=== PATIENT | female | born 2000 | race Caucasian/White ===

== ENCOUNTER 2021-02-28 17:06 | Emergency (ER) | payer OTHER ==
[~2021-02-28] VITALS: Ht 142.2 cm; Wt 56.2 kg
[2021-02-28] MEDS ORDERED: CIPRO500 MG PO (21:06)
[2021-02-28] MEDS ORDERED: TAMS0.4C PO (21:06)
== END 2021-02-28 22:35 | disposition home or self-care (01) ==
LOC: ER 17:06
DX: N20.0 Calculus of kidney (principal); R10.11 Right upper quadrant pain; N39.0 Urinary tract infection, site not specified; K59.09 Other constipation; Z03.818 Encounter for observation for suspected exposure to other biological agents ruled out

== ENCOUNTER 2021-08-12 08:16 | Emergency (ER) | payer OTHER ==
[~2021-08-12] VITALS: Ht 142.2 cm; Wt 55.8 kg
[~2021-08-12 08:16] MED LIST: CIPRO500 MG PO; TAMS0.4C PO
== END 2021-08-12 12:43 | disposition home or self-care (01) ==
LOC: ER 08:16
DX: N23 Unspecified renal colic (principal)

== ENCOUNTER 2021-08-15 05:10 | Emergency (ER) | payer OTHER ==
[~2021-08-15] VITALS: Ht 142.2 cm; Wt 55.3 kg
[2021-08-15] MEDS ORDERED: KETO10TA2 PO (07:22)
[2021-08-15] MEDS ORDERED: TAMS0.4C PO (07:22)
[2021-08-15] MEDS ORDERED: CIPRO500 MG PO (07:22)
[2021-08-15] MEDS ORDERED: ZOFRAN8 MG PO (07:22)
== END 2021-08-15 07:35 | disposition home or self-care (01) ==
LOC: ER 05:10
DX: N20.9 Urinary calculus, unspecified (principal); R10.9 Unspecified abdominal pain

== ENCOUNTER 2024-05-31 03:37 | Emergency (ER) | payer OTHER ==
[~2024-05-31] VITALS: Ht 144.8 cm; Wt 52.2 kg
[~2024-05-31 03:37] MED LIST changes: +KETO10TA2 PO; +ZOFRAN8 MG PO
[2024-05-31] MEDS ORDERED: PROMETHAZINE HCL 50 MG/ML AMPUL IM STA (04:58)
[2024-05-31] MEDS ORDERED: MEPERIDINE HCL/PF 50 MG/ML VIAL IM STA (04:58)
[2024-05-31] MEDS ORDERED: HYOSCYAMINE SULFATE 0.125 MG TAB.SUBL SL ONE (05:00)
[2024-05-31 06:30] LABS: HEMATOCRIT 37.6 % (36.0-45.00); HEMOGLOBIN 13.2 g/dL (12.0-15.00); MEAN CELL VOLUME 83.5 fL (80.00-100.00); MEAN CORPUSCULAR HEMOGLOBIN 29.4 pg (27.00-32.0); MEAN CORPUSCULAR HGB CONC 35.2 g/dl (32.0-36.0); PLATELET COUNT 200 K/uL (150-450); RED CELL DISTRIBUTION WIDTH 13.9 % (11.5-14.5)
[2024-05-31 06:46] LABS: CALCIUM 9.8 mg/dL (8.5-10.1); CREATININE SERUM 0.88 mg/dL (0.55-1.02); GFR 77.67; POTASSIUM 3.59 mEq/L (3.5-5.1)
[2024-05-31 07:08] LABS: URINE APPEARANCE Clear; URINE BILIRRUBIN Negative (NEGATIVE); URINE COLOR Yellow; URINE GLUCOSE Negative (NEGATIVE); URINE LEUKOCYTE Trace; URINE NITRATE Negative; URINE PROTEIN Trace (NEGATIVE)
[2024-05-31 07:12] LABS: URINE BACTERIA 2068.3 uL (0.0-1933); URINE EPITHELIAL CELLS 37.2 uL (0.0-38.8); URINE WBC 157.2 uL (0.0-23.2)
[2024-05-31 07:34] LABS: URINE BLOOD Trace; URINE CAST 0.14 uL (0.0-1.40); URINE KETONE 80 (NEGATIVE)
[2024-05-31] MEDS ORDERED: TAMSULOSIN HCL 0.4 MG CAP PO ONE (12:45)
== END 2024-05-31 14:07 | disposition home or self-care (01) ==
LOC: ER 03:39
DX: N20.1 Calculus of ureter (principal); R10.9 Unspecified abdominal pain